=== PATIENT | male | born 1990 | race Caucasian/White ===

== ENCOUNTER 2021-12-11 10:20 | Emergency (ER) | payer OTHER ==
[~2021-12-11] VITALS: Ht 175.3 cm; Wt 95.5 kg
[2021-12-11 12:24] VITALS: BP 130/68
[2021-12-11] MEDS ORDERED: PRED-554 PO (12:40)
[2021-12-11] MEDS ORDERED: PredniSONE 20 MG TABLET PO ONE (12:45)
== END 2021-12-11 12:56 | disposition home or self-care (01) ==
LOC: EMS 10:24
DX: T63.441A Toxic effect of venom of bees, accidental (unintentional), initial encounter (principal); F41.9 Anxiety disorder, unspecified; F15.90 Other stimulant use, unspecified, uncomplicated; Y92.89 Other specified places as the place of occurrence of the external cause
CPT/HCPCS: 99283; J7512